=== PATIENT | female | born 1990 | race Caucasian/White ===

== ENCOUNTER 2019-02-01 12:20 | Emergency (ER) | payer SELFPAY, MEDICAID ==
[2019-02-01] MEDS: IBUPROFEN 600 MG TAB PO (16:02)
[2019-02-01] MEDS: ACETAMINOPHEN 500 MG TAB PO (16:02)
[2019-02-01] MEDS: ONDANSETRON (ODT) 4 MG TAB ODT (16:02)
== END 2019-02-01 19:06 | disposition home or self-care (01) ==
LOC: FTE 12:20
DX: S00.83XA Contusion of other part of head, initial encounter (principal); G44.209 Tension-type headache, unspecified, not intractable; V49.49XA Driver injured in collision with other motor vehicles in traffic accident, initial encounter
CPT/HCPCS: 70450; 70486; 81025; 99284-25